=== PATIENT | female | born 1950 | race Caucasian/White ===

== ENCOUNTER 2021-07-11 10:40 | Emergency (ER) | payer SELFPAY ==
[~2021-07-11] VITALS: Ht 162.6 cm; Wt 90.7 kg
[2021-07-11 10:55] VITALS: BP 121/38
== END 2021-07-11 12:00 | disposition left against medical advice (07) ==
LOC: ER 10:40
DX: R30.0 Dysuria (principal); Z53.21 Procedure and treatment not carried out due to patient leaving prior to being seen by health care provider